=== PATIENT | female | born 1970 | race African-American/Black ===

== ENCOUNTER 2020-06-26 18:45 | Emergency (ER) | payer OTHER, SELFPAY ==
--- NOTE | 2020-06-26 18:49 | ED.SKABFB ---
HPI - Skin/Abscess/Foreign Bdy General Chief complaint: Skin/Abscess/Foreign Body Stated complaint: Itching Time Seen by Provider: 06/26/20 18:49 Source: patient and RN notes reviewed History of Present Illness HPI narrative: Patient is a 49-year-old female who presents the urgent care with complaints of itchiness . Patient states that this itchy spell has been ongoing for the last 2 weeks. 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 Patient states that she is itching on the lower arms, behind bilateral legs and the breast. Patient states she typically uses her prescription of triamcinolone cream, which she is currently out of. Related Data Home Medications Medication Instructions Recorded Confirmed No Home Medications 06/26/20 06/26/20 Allergies Allergy/AdvReac Type Severity Reaction Status Date / Time No Known Allergies Allergy Verified 02/23/15 13:36 Review of Systems Review of Systems: Narrative: CONSTITUTIONAL: Denies fever, chills, or sweats. EYES: Denies visual changes, redness, or discharge. ENT: Denies rhinorrhea, congestion, sore throat, or otalgia. CARDIOVASCULAR: Denies chest pain, palpitations, or edema. RESPIRATORY: Denies cough or dyspnea. GASTROINTESTINAL: Denies abdominal pain, nausea, vomiting, or diarrhea. GENITOURINARY: Denies dysuria or hematuria. SKIN: Reports of severe acute on chronic itching to bilateral lower arms, posterior legs and breast MUSCULOSKELETAL: Denies back pain, joint pain, or myalgia. NEUROLOGIC: Denies headache, numbness, or weakness. All other systems reviewed are negative, except as documented in HPI. PMFSH Comments At the time of my signature, I reviewed and agree with the nursing past medical, surgical, social, and family history. There is no relevant family history pertinent to the patient complaint. Exam Narrative: Exam Narrative: GENERAL: This is a well-nourished, well-developed patient, in no apparent distress. HEAD: normocephalic, atraumatic. EYES: PERRL. Sclera clear/white. Vision is grossly intact. EARS: External ears normal NOSE: External nose normal with no obvious nasal discharge, nares without redness, no rhinorrhea. THROAT: Mucous membranes moist NECK: Neck supple SKIN: Very dry [id number] dermatitis noted to bilateral posterior thighs, bilateral arms, and the breast NEURO: awake, alert, and oriented to person, place and time. There were no obvious focal neurologic abnormalities. EXTREMITIES: No clubbing, cyanosis, or edema. Course Vital Signs Vital signs: Vital Signs Temperature 97.5 F L 06/26/20 18:54 Pulse Rate 103 H 06/26/20 18:54 Respiratory Rate 16 06/26/20 18:54 Blood Pressure 141/91 H 06/26/20 18:54 Pulse Oximetry 100 06/26/20 18:54 Temperature 97.5 F L 06/26/20 18:54 Pulse Rate 103 H 06/26/20 18:54 Respiratory Rate 16 06/26/20 18:54 Blood Pressure 141/91 H 06/26/20 18:54 Pulse Oximetry 100 06/26/20 18:54 Reviewed-patient is informed that they may have pre-hypertension or hypertension based on a blood pressure reading in the department. I recommend the patient call the primary care provider listed on their discharge instructions or a physician of their choice this week to arrange follow-up for further evaluation of possible pre-hypertension or hypertension. MDM - Skin/Abscess/Foreign Bdy MDM Narrative Medical decision making narrative: Advised the patient to use the prescription cream as directed to the affected areas. May use an [id number] antihistamine as well, such as Zyrtec/Claritin/Benadryl. Follow-up with your quarry plug and feather driller/PCP within 2 to 5 days or for worsening symptoms or failure to improve. Confirmed with the patient that she does have a history of Sjogren's disease and she does see a quarry plug and feather driller. Differential Diagnosis Differential diagnosis: Likely abscess of skin or subcutaneous tissue, dermatophytosis, urticaria, allergic reaction to d
[2020-06-26 18:54] VITALS: BP 141/91; PULSE 103; RESP 16; TEMP 36.4; O2SAT 100
== END 2020-06-26 19:18 | disposition home or self-care (01) ==
PROVIDERS: Emergency Provider Nurse Practitioner Family
DX: L85.3 Xerosis cutis (principal); M35.00 Sjogren syndrome, unspecified; M06.9 Rheumatoid arthritis, unspecified
CPT/HCPCS: 99213; G0463